=== PATIENT | female | born 1930 | race Two or more races ===

== ENCOUNTER 2016-05-05 10:28 | Inpatient (IN) | payer MEDICARE, OTHER ==
[2016-05-05] MEDS ORDERED: ceFAZolin 2 GM in SODIUM CHLORIDE 0.9% 100 ML IVPB ONE (11:08)
[2016-05-05 11:52] VITALS: BMI 25.7
[2016-05-05 12:11] LABS: Basophils % (A) 0 %; CH 29.6; CHCM 33.4; Eosinophils % (A) 1 %; HCT 35.2 % (34.0-46.0); HDW 2.56; HGB 11.7 gm/dL (11.4-16.0); Luc % (Auto) 3; Lymphocytes # (A) 0.9 k/uL (1.0-4.8); Lymphocytes % (A) 23 %; MCH 29.5 pg (25.0-35.0); MCHC 33.2 g/dL (31.0-37.0); MCV 88.8 fL (80.0-100.0); Mean Platelet Volume 6.4; Monocytes # (A) 0.2 k/uL (0-1.0); Monocytes % (A) 6 %; Neutrophils # (A) 2.6 k/uL (1.3-7.7); Neutrophils % (A) 67 %; RBC 3.96 m/uL (3.80-5.40); RDW 12.4 % (11.5-15.5); WBC 3.9 k/uL (3.8-10.6); WBC (Perox) 4.38
[2016-05-05 12:19] LABS: Anion Gap 10 mmol/L; Blood Urea Nitrogen 21 mg/dL (7-17); Calcium 9.2 mg/dL (8.4-10.2); Carbon Dioxide 25 mmol/L (22-30); Chloride 103 mmol/L (98-107); Glucose 92 mg/dL (74-99); Non-African American GFR(MDRD) >60 (>60 ml/min/1.73 sqM); Potassium 4.2 mmol/L (3.5-5.1); Sodium 138 mmol/L (137-145)
[2016-05-05 12:25] LABS: INR 1.1 (<1.1); Partial Thromboplastin Time 24.5 sec (22.0-30.0); Prothrombin Time 10.9 sec (9.0-12.0)
[2016-05-05] MEDS ORDERED: ACETAMINOPHEN TAB 500 MG TAB PO PRN (13:34)
[2016-05-05] MEDS: LISINOPRIL 5 MG TAB PO SCH ×2 (15:14→21:12)
--- NOTE | 2016-05-05 15:36 | P.CONS ---
History of Present Illness - Reason for Consult Consult date: 05/05/16 Medical management Requesting physician: Srinath Joe - Chief Complaint Left hip fracture - History of Present Illness This is a 85-year-old female with a past medical history of hypertension and hyperlipidemia. We have been consulted for medical clearance to proceed with surgery. Patient has been having left hip pain and difficulty walking since Monday. Went to see the orthopedic doctor and apparently an x-ray of the hip was done showing a left femoral head fracture. Patient was admitted to the hospital for surgical intervention tomorrow. Patient has seen Dr. Christina in the past for her PCP. It's been about 6 months since she last seen Dr. Christina. Patient denies any chest pain, shortness of breath, nausea or vomiting. Denies any bowel movement changes or urinary symptoms. Denies any fevers chills or sweats. Denies any cough or congestion or sore throat. Patient denies any previous [place], congestive heart failure, CVA, diabetes or renal insufficiency. Review of Systems Please refer to HPI otherwise unremarkable Past Medical History Past Medical History: Eye Disorder, Hypertension, Osteoarthritis (OA) Additional Past Medical History / Comment(s): cataracts History of Any Multi-Drug Resistant Organisms: None Reported Past Surgical History: No Surgical Hx Reported Past Anesthesia/Blood Transfusion Reactions: No Reported Reaction Past Psychological History: No Psychological Hx Reported Smoking Status: Never smoker Past Alcohol Use History: None Reported Past Drug Use History: None Reported - Past Family History Father Family Medical History: No Reported History Mother Family Medical History: No Reported History Medications and Allergies Home Medications Medication Instructions Recorded Confirmed Type Aspirin [Adult Low Dose Aspirin EC] 81 mg PO DAILY 05/05/16 05/05/16 History Enalapril [Vasotec] 5 mg PO BID 05/05/16 05/05/16 History Multivitamin [Multivitamins Adult 1 tab PO DAILY@1200 05/05/16 05/05/16 History Gummies] Allergies Allergy/AdvReac Type Severity Reaction Status Date / Time No Known Allergies Allergy Verified 05/05/16 14:07 Physical Exam Vitals: Vital Signs Temp Pulse Resp BP Pulse Ox 05/05/16 11:40 97 F L 74 17 188/87 98 Intake and Output 05/04/16 05/05/16 05/05/16 22:59 06:59 14:59 Other: # Voids 1 Weight 68.039 kg Patient Weight 05/06/16 06:59 Weight 68.039 kg Head normocephalic Neck supple Lungs clear to auscultation bilaterally no wheezing or crackles Heart regular rate and rhythm S1-S2, no rub or gallop Abdomen is soft nontender nondistended positive bowel sounds no hepatosplenomegaly Extremities no edema Neuro alert and orientated to 3 Results CBC & Chem 7: 05/05/16 11:55 05/05/16 11:55 Labs: Abnormal Lab Results - Last 24 Hours (Table) 05/05/16 05/05/16 Range/Units 11:55 11:55 Lymphocytes # 0.9 L (1.0-4.8) k/uL BUN 21 H (7-17) mg/dL Assessment and Plan Plan: 1. Left femoral head fracture: Admitted to orthopedic service. Anticipating surgical intervention tomorrow. Check urinalysis, EKG and chest x-ray for preop clearance. Patient is likely intermediate risk for surgery due to her age and hypertension. 2. Essential hypertension: with elevated blood pressure 188/87. We'll have blood pressure repeated. We'll resume patient's home medication enalapril 5 mg twice a day 3. Hyperlipidemia GI prophylaxis Pepcid and will leave DVT prophylaxis anticoagulation up to orthopedics Thank you for this consultation. We will continue to follow along with you. Time with Patient: Greater than 30 (Greater than 50% of the total time spent in counseling and coordination of care.I performed an examination of the patient and discussed their management with the physician Penal Officer. I have reviewed the Physician Penal Officer's notes and agree with the documented findings and plan of care)
[2016-05-05 17:09] LABS: Appearance,Urine Clear (Clear); Bilirubin,Urine Negative (Negative); Glucose,Urine (UA) Negative (Negative); Ketones,Urine Negative (Negative); Leukocyte Esterase,Urine Moderate (Negative); Mucus,Urine Rare /hpf; Nitrite,Urine Negative (Negative); PH, Urine 6.5 (5.0-8.0); Particle Count 1263; Protein,Urine Negative (Negative); RBC,Urine 1 /hpf (0-5); Specific Gravity,Urine 1.009 (1.001-1.035); Squamous Epithelial Cell,Urine <1 /hpf (0-4); UA Billing (MACRO vs. MICRO) MICRO; Urobilinogen,Urine <2.0 mg/dL (<2.0); WBC,Urine 1 /hpf (0-5)
[2016-05-05] MEDS ORDERED: HYDROmorphone 1 MG/ML 1 ML SYRINGE IVP PRN ×2 (17:12)
--- NOTE | 2016-05-05 17:20 | XR ---
EXAMINATION TYPE: XR chest 1V portable DATE OF EXAM: 05/05/2016 5:14 PM COMPARISON: NONE HISTORY: Preop clearance TECHNIQUE: Single frontal view of the chest is obtained. FINDINGS: There is no heart failure nor confluent pneumonic infiltrate. There are no hilar masses. T horacic aorta is atheromatous. There is no pleural effusion. Bony thorax appears intact. IMPRESSION: No active cardiopulmonary disease.
--- NOTE | 2016-05-05 17:29 | P.HPOR ---
History of Present Illness H&P Date: 05/05/16 Chief Complaint: Left hip fracture The patient is a pleasant 85-year-old female who presented to our office today with complaints of left hip pain. The patient states that the pain started approximately 1 week ago on Monday. She denies any specific injury such as a fall. She states that the pain started where she was unable to fully bear- weight and started to use a walker. The patient was seen and evaluated in the emergency department at [facility] where x-rays were taken and the patient was released back home with follow-up with an orthopedic physician. She currently lives with her daughter. She states she only uses a walker when walking long distances. Today, she denies fever, chills, rigors, abdominal pain, nausea, vomiting, shortness breath, and chest pain. She states she has a history of hypertension and hyperlipidemia. She denies history of stroke, heart attack, and diabetes. The patient was evaluated at the bedside with her daughter present. Review of Systems Constitutional: Denies chills, Denies fatigue, Denies fever Eyes: right tunnel vision/blind spots Cardiovascular: Denies chest pain, Denies shortness of breath Musculoskeletal: left: hip pain Neurological: Denies headaches, Denies syncope Past Medical History Past Medical History: Eye Disorder, Hypertension, Osteoarthritis (OA) Additional Past Medical History / Comment(s): cataracts History of Any Multi-Drug Resistant Organisms: None Reported Past Surgical History: No Surgical Hx Reported Past Anesthesia/Blood Transfusion Reactions: No Reported Reaction Past Psychological History: No Psychological Hx Reported Smoking Status: Never smoker Past Alcohol Use History: None Reported Past Drug Use History: None Reported - Past Family History Father Family Medical History: No Reported History Mother Family Medical History: No Reported History Medications and Allergies Home Medications Medication Instructions Recorded Confirmed Type Aspirin [Adult Low Dose Aspirin EC] 81 mg PO DAILY 05/05/16 05/05/16 History Enalapril [Vasotec] 5 mg PO BID 05/05/16 05/05/16 History Multivitamin [Multivitamins Adult 1 tab PO DAILY@1200 05/05/16 05/05/16 History Gummies] Allergies Allergy/AdvReac Type Severity Reaction Status Date / Time No Known Allergies Allergy Verified 05/05/16 14:07 Physical Examination The patient is in no acute distress. She is alert and oriented 3. The patient 's head is normocephalic atraumatic. No pain upon palpation of the cervical spine. No obvious deformities to the bilateral upper extremities or pain upon range of motion. Exam of the right lower extremity reveals no obvious deformities or pain upon range of motion. Focused exam of the left lower extremity reveals no external rotation or shortening. She denies pain to the distal femur and knee. She has good foot and ankle motion. Bilateral calves are soft and nontender. She is pain upon palpation to the lateral hip. No pain upon logrolling of the left leg. Neurological and circulatory status is intact. Results - Labs Labs: Abnormal Lab Results - Last 24 Hours (Table) 05/05/16 05/05/16 05/05/16 Range/Units 11:55 11:55 16:49 Lymphocytes # 0.9 L (1.0-4.8) k/uL BUN 21 H (7-17) mg/dL Urine Blood Small H (Negative) Ur Leukocyte Esterase Moderate H (Negative) Urine Mucus Rare H (None) /hpf H & H 05/05/16 Range/Units 11:55 Hgb 11.7 (11.4-16.0) gm/dL Hct 35.2 (34.0-46.0) % Coagulation 05/05/16 Range/Units 11:55 INR 1.1 (<1.1) Result Diagrams: 05/05/16 11:55 05/05/16 11:55 - Diagnostic results Hip x-ray: other (Outside x-rays from our office dated 05/05/2016 reveals a displaced femoral neck fracture to the left hip. Mild degenerative changes to the left hip is present.) Assessment and Plan (1) Closed left hip fracture Status: Acute (2) Hip pain, left Status: Acute Plan: The clinical and x-ray findings were discussed with the patient and the patient' s daughter at the bedside. The patient will undergo a left hip hemiarthroplasty tomorrow by Dr. Joe. Surgical risks were discussed at length with the patient. Possible risks and complications including but not limited to risk of bleeding, infection, dislocation, DVT, stroke, heart attack, and were discussed. She will be nothing by mouth at midnight. Continue pain control. The patient may get up to bedside commode with non-weightbearing to the left lower extremity or a Hook catheter may be inserted. The patient may need skilled rehab upon discharge or may discharge home with daughter depending on patient's course. We will continue to follow patient closely and make further recommendations as needed.
[2016-05-05] MEDS: SODIUM CHLORIDE 0.9% 1,000 ML IV SCH (17:33)
[2016-05-05] MEDS: MECLIZINE 25 MG TAB PO SCH (23:14)
[2016-05-06] MEDS: HYDROcodone/APAP 5-325MG 1 EACH TAB PO PRN ×3 (03:57→21:48)
[2016-05-06] MEDS ORDERED: ceFAZolin 2 GM in SODIUM CHLORIDE 0.9% 100 ML IVPB ONE (06:00)
[2016-05-06] MEDS ORDERED: MIDAZOLAM 2 MG/2 ML VIAL IV PRN (06:50)
[2016-05-06] MEDS ORDERED: ONDANSETRON 4 MG/2 ML VIAL IVP ONE (06:50)
[2016-05-06 07:43] LABS: Basophils % (A) 0 %; CH 29.7; CHCM 33.7; Eosinophils # (A) 0.1 k/uL (0-0.7); Eosinophils % (A) 2 %; HCT 33.8 % (34.0-46.0); HDW 2.58; Luc # (Auto) 0.12; Luc % (Auto) 3; Lymphocytes # (A) 0.9 k/uL (1.0-4.8); Lymphocytes % (A) 24 %; MCH 28.7 pg (25.0-35.0); MCHC 32.5 g/dL (31.0-37.0); MCV 88.3 fL (80.0-100.0); Mean Platelet Volume 6.4; Monocytes # (A) 0.3 k/uL (0-1.0); Monocytes % (A) 8 %; Neutrophils # (A) 2.3 k/uL (1.3-7.7); Neutrophils % (A) 62 %; RBC 3.83 m/uL (3.80-5.40); RDW 12.5 % (11.5-15.5); WBC 3.7 k/uL (3.8-10.6); WBC (Perox) 4.04
[2016-05-06] MEDS: LISINOPRIL 5 MG TAB PO SCH ×2 (08:02→21:48)
[2016-05-06 08:16] LABS: ALT 53 U/L (9-52); AST 40 U/L (14-36); Alkaline Phosphatase 68 U/L (38-126); Anion Gap 11 mmol/L; Blood Urea Nitrogen 19 mg/dL (7-17); Calcium 8.8 mg/dL (8.4-10.2); Carbon Dioxide 24 mmol/L (22-30); Chloride 105 mmol/L (98-107); Glucose 82 mg/dL (74-99); Non-African American GFR(MDRD) 60 (>60 ml/min/1.73 sqM); Sodium 140 mmol/L (137-145); Total Bilirubin 0.7 mg/dL (0.2-1.3); Total Protein 5.9 g/dL (6.3-8.2)
[2016-05-06] MEDS ORDERED: IV FLUID CONTINUATION 1,000 ML IV ONE (09:15)
[2016-05-06] MEDS ORDERED: PHENYLEPHRINE-0.9% NACL SYG 1 MG/10 ML SYRINGE ONE (10:16)
[2016-05-06] MEDS ORDERED: PROPOFOL 10 MG/ML 20 ML VIAL IV ONE (10:16)
[2016-05-06] MEDS ORDERED: fentaNYL (PF) 50 MCG/ML 2 ML AMP ONE (10:16)
[2016-05-06] MEDS ORDERED: MIDAZOLAM 2 MG/2 ML VIAL ONE (10:16)
[2016-05-06] MEDS ORDERED: ceFAZolin 3,000 MG in SODIUM CHLORIDE 0.9% IRRIGATIO 3,000 ML IRRIGATION ONE (10:57)
[2016-05-06] MEDS ORDERED: LACTATED RINGERS 1,000 ML IV ONE (11:15)
[2016-05-06] MEDS ORDERED: NALOXONE 0.4 MG/ML 1 ML VIAL IV PRN (12:13)
[2016-05-06] MEDS ORDERED: ONDANSETRON 4 MG/2 ML VIAL IVP PRN (12:13)
[2016-05-06] MEDS ORDERED: hydrOXYzine PAMOATE 25 MG CAP PO PRN (12:13)
[2016-05-06] MEDS ORDERED: HYDROmorphone 1 MG/ML 1 ML SYRINGE IVP PRN ×2 (12:13)
[2016-05-06] MEDS ORDERED: MAGNESIUM HYDROXIDE 2,400 MG/10 ML CUP PO PRN (12:13)
[2016-05-06] MEDS ORDERED: TEMAZEPAM 15 MG CAP PO PRN (12:13)
[2016-05-06] MEDS: LACTATED RINGERS 1,000 ML IV SCH ×2 (12:43→14:21)
[2016-05-06] MEDS: SODIUM CHLORIDE 0.9% 1,000 ML IV SCH (12:43)
[2016-05-06] MEDS: MECLIZINE 25 MG TAB PO SCH ×2 (12:43→21:48)
--- NOTE | 2016-05-06 12:49 | XR ---
EXAMINATION TYPE: XR Hip Limited LT DATE OF EXAM ORDERED: 05/06/2016 12:26 PM HISTORY: Left hip arthroplasty. COMPARISON: None. FINDINGS: A left hip hemiarthroplasty has been performed. Prosthetic elements appear in good positio n. IMPRESSION: STATUS POST LEFT HIP HEMIARTHROPLASTY..
--- NOTE | 2016-05-06 14:47 | P.PN ---
Subjective Patient is postop day #0 status post left hip femoral head replacement. Pain controlled. Denies any chest pain or shortness breath. Denies any nausea vomiting. Denies any bowel movement changes. Has Hook catheter in place. Objective - Vital Signs Vital signs: Vital Signs Temp 97.4 F L 05/06/16 13:15 Pulse 65 05/06/16 13:15 Resp 16 05/06/16 13:15 BP 143/75 05/06/16 13:15 Pulse Ox 100 05/06/16 13:15 Intake & Output 05/05/16 05/06/16 05/06/16 18:59 06:59 18:59 Intake Total 450 1901 Output Total 650 450 Balance -200 1451 Weight 68.039 kg Intake: IV 450 1901 Sodium Chloride 0.9% 1, 450 000 ml @ 50 mls/hr IV . Q20H [facility] Rx#:[id number] Output: Urine 650 400 Uretheral (Hook) 650 Estimated Blood Loss 50 Other: Voiding Method Bedside Commode Indwelling Catheter Indwelling Catheter # Voids 1 - Exam Head normocephalic Neck supple Lungs clear to auscultation bilaterally no wheezing or crackles Heart regular rate and rhythm S1-S2, no rub or gallop Abdomen is soft nontender nondistended positive bowel sounds no hepatosplenomegaly Extremities no edema Neuro alert and orientated to 3 - Labs CBC & Chem 7: 05/06/16 07:21 05/06/16 07:21 Labs: Abnormal Lab Results - Last 24 Hours (Table) 05/05/16 05/06/16 05/06/16 Range/Units 16:49 07:21 07:21 WBC 3.7 L (3.8-10.6) k/uL Hgb 11.0 L (11.4-16.0) gm/dL Hct 33.8 L (34.0-46.0) % Lymphocytes # 0.9 L (1.0-4.8) k/uL BUN 19 H (7-17) mg/dL AST 40 H (14-36) U/L ALT 53 H (9-52) U/L Total Protein 5.9 L (6.3-8.2) g/dL Albumin 3.2 L (3.5-5.0) g/dL Urine Blood Small H (Negative) Ur Leukocyte Esterase Moderate H (Negative) Urine Mucus Rare H (None) /hpf Assessment and Plan Plan: 1. Left femoral head fracture: Status post left hip femoral head replacement. Postop day #0. DVT prophylaxis with Coumadin per orthopedic protocol. Continue with pain medication per orthopedic protocol 2. Essential hypertension: Patient's blood pressures have shown improvement after resuming her lisinopril 3. Hyperlipidemia: patient's daughters to bring in home med list. Patient can' t remember which cholesterol medication she is on. GI prophylaxis Pepcid and will leave DVT Coumadin
[2016-05-06] MEDS: ceFAZolin 2 GM in SODIUM CHLORIDE 0.9% 100 ML IVPB SCH (16:18)
[2016-05-06] MEDS ORDERED: WARFARIN 2.5 MG TAB PO ONE (18:00)
[2016-05-06] MEDS: SENNOSIDES-DOCUSATE SODIUM 1 EACH TAB PO SCH (21:48)
[2016-05-07] MEDS: LACTATED RINGERS 1,000 ML IV SCH ×4 (00:05→20:48)
[2016-05-07] MEDS: ceFAZolin 2 GM in SODIUM CHLORIDE 0.9% 100 ML IVPB SCH (00:31)
[2016-05-07] MEDS: HYDROcodone/APAP 5-325MG 1 EACH TAB PO PRN ×2 (06:11→18:32)
[2016-05-07] MEDS: SODIUM CHLORIDE 0.9% 1,000 ML IV SCH (06:33)
[2016-05-07 07:20] LABS: Basophils % (A) 0 %; CH 29.9; CHCM 34.6; Eosinophils % (A) 0 %; HCT 28.3 % (34.0-46.0); HDW 2.69; Luc # (Auto) 0.11; Luc % (Auto) 2; Lymphocytes # (A) 0.6 k/uL (1.0-4.8); Lymphocytes % (A) 12 %; MCH 28.5 pg (25.0-35.0); MCHC 32.7 g/dL (31.0-37.0); Mean Platelet Volume 7.2; Monocytes # (A) 0.4 k/uL (0-1.0); Monocytes % (A) 8 %; Neutrophils # (A) 3.5 k/uL (1.3-7.7); Neutrophils % (A) 77 %; RBC 3.26 m/uL (3.80-5.40); RDW 12.4 % (11.5-15.5); WBC 4.6 k/uL (3.8-10.6); WBC (Perox) 4.47
[2016-05-07 07:26] LABS: INR 1.3 (<1.1); Prothrombin Time 13.2 sec (9.0-12.0)
[2016-05-07 07:38] LABS: HGB 9.3 gm/dL (11.4-16.0)
[2016-05-07 07:47] LABS: ALT 40 U/L (9-52); AST 41 U/L (14-36); Alkaline Phosphatase 60 U/L (38-126); Anion Gap 9 mmol/L; Blood Urea Nitrogen 23 mg/dL (7-17); Calcium 8.6 mg/dL (8.4-10.2); Carbon Dioxide 23 mmol/L (22-30); Chloride 103 mmol/L (98-107); Glucose 110 mg/dL (74-99); Non-African American GFR(MDRD) >60 (>60 ml/min/1.73 sqM); Potassium 3.8 mmol/L (3.5-5.1); Sodium 135 mmol/L (137-145); Total Bilirubin 0.6 mg/dL (0.2-1.3); Total Protein 5.6 g/dL (6.3-8.2)
[2016-05-07] MEDS: MECLIZINE 25 MG TAB PO SCH ×2 (07:54→19:20)
[2016-05-07] MEDS: LISINOPRIL 5 MG TAB PO SCH ×2 (07:54→19:20)
--- NOTE | 2016-05-07 09:17 | P.PN ---
Subjective Principal diagnosis: Status post left hip hemiarthroplasty Patient is pleasant 85-year-old female seen at bedside this morning. She is postop day 1 from left hip hemiarthroplasty performed by Dr. Joe. She has no new complaints. Her pain is controlled. She denies calf pain, fever, chills, chest pain, shortness breath, numbness, tingling, calf pain or other. Objective - Vital Signs Vital signs: Vital Signs Temp 99.1 F 05/07/16 08:00 Pulse 88 05/07/16 08:00 Resp 15 05/07/16 08:00 BP 126/75 05/07/16 08:00 Pulse Ox 96 05/07/16 08:00 Intake & Output 05/06/16 05/07/16 05/07/16 18:59 06:59 18:59 Intake Total 1901 200 180 Output Total 450 520 Balance 1451 -320 180 Intake: IV 1901 200 Sodium Chloride 0.9% 1, 200 000 ml @ 50 mls/hr IV . Q20H [facility] Rx#:[id number] Oral 180 Output: Urine 400 520 Uretheral (Hook) 320 Estimated Blood Loss 50 Other: Voiding Method Indwelling Catheter Indwelling Catheter Indwelling Catheter - Exam Inspection of left hip surgical wound is benign. There is no active bleeding, dehiscence or drainage. Sensation to light touch is intact with the left lower extremity. She has active motor at the knee, foot, ankle and toes. Calf is soft and nontender. 2+ dorsalis pedis pulses present and less than 2 second cap refill is present. - Constitutional General appearance: Present: no acute distress - Psychiatric Psychiatric: Present: A&O x's 3, appropriate affect, intact judgment & insight - Labs CBC & Chem 7: 05/07/16 06:57 05/07/16 06:57 Labs: Abnormal Lab Results - Last 24 Hours (Table) 05/07/16 05/07/16 05/07/16 Range/Units 06:57 06:57 06:57 RBC 3.26 L (3.80-5.40) m/uL Hgb 9.3 L D (11.4-16.0) gm/dL Hct 28.3 L (34.0-46.0) % Lymphocytes # 0.6 L (1.0-4.8) k/uL PT 13.2 H (9.0-12.0) sec Sodium 135 L (137-145) mmol/L BUN 23 H (7-17) mg/dL Glucose 110 H (74-99) mg/dL AST 41 H (14-36) U/L Total Protein 5.6 L (6.3-8.2) g/dL Albumin 3.0 L (3.5-5.0) g/dL Microbiology - Last 24 Hours (Table) 05/06/16 08:35 Urine Culture - Preliminary Urine,Catheterized Assessment and Plan (1) Closed left hip fracture Narrative/Plan: She'll continue with routine postop orthopedic protocol including pain management, wound care, physical therapy, DVT prophylaxis and medical management. She'll likely transfer to an extended care facility for rehab on 05/09/2016 Status: Acute Time with Patient: Less than 30
--- NOTE | 2016-05-07 17:08 | P.PN ---
Subjective Patient is an 85-year-old female admitted to the hospital due to left femoral head fracture, she underwent left femoral head replacement she is postoperative day #1 Hook catheter was removed today Patient is feeling well she has mild pain she denies any other complaints at this time Objective - Vital Signs Vital signs: Vital Signs Temp 98.4 F 05/07/16 16:14 Pulse 100 05/07/16 13:39 Resp 16 05/07/16 13:39 BP 102/49 05/07/16 13:39 Pulse Ox 96 05/07/16 13:39 Intake & Output 05/06/16 05/07/16 05/07/16 18:59 06:59 18:59 Intake Total 8297 490 8084 Output Total 450 520 Balance 1451 -320 1100 Intake: IV 1901 200 400 Sodium Chloride 0.9% 1, 200 400 000 ml @ 50 mls/hr IV . Q20H [facility] Rx#:[id number] Intake, IV Titration 100 Amount ceFAZolin 2 gm In Sodium 100 Chloride 0.9% 100 ml @ 100 mls/hr IVPB Q8HR [facility] Rx#:[id number] Oral 600 Output: Urine 400 520 Uretheral (Hook) 320 Estimated Blood Loss 50 Other: Voiding Method Indwelling Catheter Indwelling Catheter Indwelling Catheter - Exam HEENT head normocephalic and atraumatic Neck is supple no JVD no goiter no lymphadenopathy Chest is clear to auscultation no wheezing Cardiac exam reveals regular heart sounds no murmurs Abdomen is soft nontender no organomegaly Extremity exam reveals no edema no cyanosis or clubbing - Labs CBC & Chem 7: 05/07/16 06:57 05/07/16 06:57 Labs: Abnormal Lab Results - Last 24 Hours (Table) 05/07/16 05/07/16 05/07/16 Range/Units 06:57 06:57 06:57 RBC 3.26 L (3.80-5.40) m/uL Hgb 9.3 L D (11.4-16.0) gm/dL Hct 28.3 L (34.0-46.0) % Lymphocytes # 0.6 L (1.0-4.8) k/uL PT 13.2 H (9.0-12.0) sec Sodium 135 L (137-145) mmol/L BUN 23 H (7-17) mg/dL Glucose 110 H (74-99) mg/dL AST 41 H (14-36) U/L Total Protein 5.6 L (6.3-8.2) g/dL Albumin 3.0 L (3.5-5.0) g/dL Microbiology - Last 24 Hours (Table) 05/06/16 08:35 Urine Culture - Final Urine,Catheterized Assessment and Plan Plan: 1. Left femoral head fracture: Status post left hip femoral head replacement. Postop day #0. DVT prophylaxis with Coumadin per orthopedic protocol. Continue with pain medication per orthopedic protocol 2. Essential hypertension: Patient's blood pressures have shown improvement after resuming her lisinopril 3. Hyperlipidemia: patient's daughters to bring in home med list. Patient can' t remember which cholesterol medication she is on. 4. Anemia hemoglobin down to 8 today Will monitor 5. For DVT prophylaxis patient is on Coumadin per orthopedic protocol Continue was current management will recheck labs in a.m.
[2016-05-07] MEDS ORDERED: WARFARIN 5 MG TAB PO ONE (18:15)
[2016-05-07] MEDS: SENNOSIDES-DOCUSATE SODIUM 1 EACH TAB PO SCH (19:20)
[2016-05-08] MEDS: HYDROcodone/APAP 5-325MG 1 EACH TAB PO PRN ×3 (03:53→20:11)
[2016-05-08] MEDS: SODIUM CHLORIDE 0.9% 1,000 ML IV SCH ×2 (03:55→22:09)
[2016-05-08] MEDS: LACTATED RINGERS 1,000 ML IV SCH ×3 (05:31→20:05)
[2016-05-08 07:30] LABS: Basophils % (A) 0 %; CH 29.8; CHCM 33.8; Eosinophils # (A) 0.1 k/uL (0-0.7); Eosinophils % (A) 1 %; HCT 27.2 % (34.0-46.0); HDW 2.61; HGB 9.1 gm/dL (11.4-16.0); Luc # (Auto) 0.12; Luc % (Auto) 2; Lymphocytes % (A) 20 %; MCH 29.5 pg (25.0-35.0); MCHC 33.3 g/dL (31.0-37.0); MCV 88.6 fL (80.0-100.0); Mean Platelet Volume 7.3; Monocytes # (A) 0.3 k/uL (0-1.0); Monocytes % (A) 6 %; Neutrophils # (A) 3.8 k/uL (1.3-7.7); Neutrophils % (A) 71 %; RBC 3.07 m/uL (3.80-5.40); RDW 12.5 % (11.5-15.5); WBC 5.3 k/uL (3.8-10.6)
[2016-05-08 07:45] LABS: INR 1.5 (<1.1); Prothrombin Time 14.3 sec (9.0-12.0)
[2016-05-08 08:01] LABS: ALT 31 U/L (9-52); AST 31 U/L (14-36); Alkaline Phosphatase 48 U/L (38-126); Anion Gap 9 mmol/L; Blood Urea Nitrogen 30 mg/dL (7-17); Calcium 8.4 mg/dL (8.4-10.2); Carbon Dioxide 22 mmol/L (22-30); Chloride 104 mmol/L (98-107); Glucose 104 mg/dL (74-99); Non-African American GFR(MDRD) 59 (>60 ml/min/1.73 sqM); Potassium 4.1 mmol/L (3.5-5.1); Sodium 135 mmol/L (137-145); Total Bilirubin 0.6 mg/dL (0.2-1.3)
[2016-05-08] MEDS: MECLIZINE 25 MG TAB PO SCH ×2 (08:01→22:07)
[2016-05-08] MEDS: LISINOPRIL 5 MG TAB PO SCH ×2 (08:01→22:07)
--- NOTE | 2016-05-08 09:00 | P.PN ---
Subjective 85-year-old female being seen sitting up in a chair physical therapy at the bedside daughter at bedside updated on plan of care. Patient is postop left femoral head replacement day 2 currently is denying chest pain dizziness or lightheadedness. The discharge plan is in progress the daughter indicates the patient is interested in [facility] subacute rehab when appropriate Objective - Vital Signs Vital signs: Vital Signs Temp 97.7 F 05/08/16 03:00 Pulse 100 05/08/16 03:00 Resp 18 05/08/16 03:00 BP 151/78 05/08/16 03:00 Pulse Ox 96 05/08/16 03:00 Intake & Output 05/07/16 05/08/16 05/08/16 17:59 06:59 18:59 Intake Total 180 Output Total Balance 180 Intake: IV Sodium Chloride 0.9% 1, 000 ml @ 50 mls/hr IV . Q20H [facility] Rx#:[id number] Intake, IV Titration Amount ceFAZolin 2 gm In Sodium Chloride 0.9% 100 ml @ 100 mls/hr IVPB Q8HR [facility] Rx#:[id number] Oral 180 Output: Urine Uretheral (Hook) Other: Voiding Method - Exam Physical exam 85-year-old female sitting up in a chair pleasant denying chest pain dizziness lightheadedness or shortness of breath oriented 3 Lungs essentially clear on room air Heart S1-S2 audible and regular Abdomen soft nontender urinating no difficulty no stool Extremities dressing to the left hip dry below-knee MIRACLE hose on no calf tenderness no edema - Labs CBC & Chem 7: 05/08/16 07:01 05/08/16 07:01 Labs: Abnormal Lab Results - Last 24 Hours (Table) 05/08/16 05/08/16 05/08/16 Range/Units 07:01 07:01 07:01 RBC 3.07 L (3.80-5.40) m/uL Hgb 9.1 L (11.4-16.0) gm/dL Hct 27.2 L (34.0-46.0) % PT 14.3 H (9.0-12.0) sec Sodium 135 L (137-145) mmol/L BUN 30 H (7-17) mg/dL Glucose 104 H (74-99) mg/dL Total Protein 5.0 L (6.3-8.2) g/dL Albumin 2.6 L (3.5-5.0) g/dL Microbiology - Last 24 Hours (Table) 05/06/16 08:35 Urine Culture - Final Urine,Catheterized Assessment and Plan Plan: Impression Left femoral head fracture status post left hip femoral head replacement postop day 1 Essential hypertension Hyperlipidemia anemia hemoglobin stable 9.1 History of osteoarthritis Plan Continue postop orthopedic care per orthopedics Activity per orthopedics recommendations Pain control Monitor blood pressure and heart rate address as indicated PT OT eval Discharge plan and progress subacute rehab when appropriate The above dictated assessment and findings were discussed with dr cline . Impression and the plan of care have been dictated as directed. Gabriella Laureano nurse practitioner acting as a scribe for dr cline
--- NOTE | 2016-05-08 09:44 | P.PN ---
Subjective Principal diagnosis: Status post left hip hemiarthroplasty Patient is pleasant 85-year-old female seen at bedside this morning. She is postop day #2 from left hip hemiarthroplasty performed by Dr. Joe. She has no new complaints. Her pain is controlled. She denies calf pain, fever, chills, chest pain, shortness breath, numbness, tingling, calf pain or other. Objective - Vital Signs Vital signs: Vital Signs Temp 97.7 F 05/08/16 03:00 Pulse 100 05/08/16 03:00 Resp 18 05/08/16 03:00 BP 151/78 05/08/16 03:00 Pulse Ox 96 05/08/16 03:00 Intake & Output 05/07/16 05/08/16 05/08/16 17:59 06:59 18:59 Intake Total 180 Output Total Balance 180 Intake: IV Sodium Chloride 0.9% 1, 000 ml @ 50 mls/hr IV . Q20H [facility] Rx#:[id number] Intake, IV Titration Amount ceFAZolin 2 gm In Sodium Chloride 0.9% 100 ml @ 100 mls/hr IVPB Q8HR [facility] Rx#:[id number] Oral 180 Output: Urine Uretheral (Hook) Other: Voiding Method - Exam Inspection of left hip surgical wound is benign. There is no active bleeding, dehiscence or drainage. Sensation to light touch is intact with the left lower extremity. She has active motor at the knee, foot, ankle and toes. Calf is soft and nontender. 2+ dorsalis pedis pulses present and less than 2 second cap refill is present. - Constitutional General appearance: Present: no acute distress - Psychiatric Psychiatric: Present: A&O x's 3, appropriate affect, intact judgment & insight - Labs CBC & Chem 7: 05/08/16 07:01 05/08/16 07:01 Labs: Abnormal Lab Results - Last 24 Hours (Table) 05/08/16 05/08/16 05/08/16 Range/Units 07:01 07:01 07:01 RBC 3.07 L (3.80-5.40) m/uL Hgb 9.1 L (11.4-16.0) gm/dL Hct 27.2 L (34.0-46.0) % PT 14.3 H (9.0-12.0) sec Sodium 135 L (137-145) mmol/L BUN 30 H (7-17) mg/dL Glucose 104 H (74-99) mg/dL Total Protein 5.0 L (6.3-8.2) g/dL Albumin 2.6 L (3.5-5.0) g/dL Microbiology - Last 24 Hours (Table) 05/06/16 08:35 Urine Culture - Final Urine,Catheterized Assessment and Plan (1) Closed left hip fracture Narrative/Plan: She'll continue with routine postop orthopedic protocol including pain management, wound care, physical therapy, DVT prophylaxis and medical management. She'll likely transfer to an extended care facility for rehab on 05/09/2016 Status: Acute Time with Patient: Less than 30
[2016-05-08] MEDS ORDERED: WARFARIN 2.5 MG TAB PO ONE (18:00)
[2016-05-08] MEDS: SENNOSIDES-DOCUSATE SODIUM 1 EACH TAB PO SCH (22:07)
[2016-05-09 01:00] VITALS: BP 152/77; PULSE 98; RESP 16; TEMP 98.6
[2016-05-09] MEDS: LACTATED RINGERS 1,000 ML IV SCH ×2 (05:16)
[2016-05-09] MEDS: HYDROcodone/APAP 5-325MG 1 EACH TAB PO PRN ×2 (06:10→12:32)
[2016-05-09 07:22] LABS: Basophils % (A) 0 %; CH 29.8; CHCM 34.2; Eosinophils # (A) 0.1 k/uL (0-0.7); Eosinophils % (A) 3 %; HCT 26.4 % (34.0-46.0); HDW 2.69; HGB 8.8 gm/dL (11.4-16.0); Luc # (Auto) 0.09; Luc % (Auto) 2; Lymphocytes # (A) 0.6 k/uL (1.0-4.8); Lymphocytes % (A) 15 %; MCH 29.4 pg (25.0-35.0); MCHC 33.4 g/dL (31.0-37.0); MCV 87.8 fL (80.0-100.0); Mean Platelet Volume 7.6; Monocytes # (A) 0.3 k/uL (0-1.0); Monocytes % (A) 6 %; Neutrophils # (A) 3.1 k/uL (1.3-7.7); Neutrophils % (A) 74 %; RDW 12.5 % (11.5-15.5); WBC 4.2 k/uL (3.8-10.6); WBC (Perox) 4.49
[2016-05-09 07:36] LABS: INR 2.3 (<1.1); Prothrombin Time 22.4 sec (9.0-12.0)
[2016-05-09] MEDS: LISINOPRIL 5 MG TAB PO SCH (07:45)
[2016-05-09] MEDS: MECLIZINE 25 MG TAB PO SCH (07:47)
--- NOTE | 2016-05-09 08:47 | P.DS ---
Providers Date of admission: 05/05/16 11:01 Expected date of discharge: 05/09/16 Attending physician: Srinath Joe Consults: 05/05/16 11:08 Consult Physician Routine Consulting Provider: Bo Alcala Consult Reason/Comments: surgical clearance and medical management Do you want consulting provider notified?: Yes Primary care physician: Stated None - Discharge Diagnosis(es) (1) Closed left hip fracture Current Visit: Yes Status: Acute Priority: Medium (2) Hip pain, left Current Visit: Yes Status: Acute Hospital Course: This is a 85 year old female who presented to the hospital after a left hip fracture was found in our office via x-ray. The patient was cleared by medicine for surgery. The patient underwent a left hip hemiarthroplasty on 11/[address] Joe. The procedure was performed without complication or sequelae. The patient is doing well postoperatively. Labs and vital signs are stable on the day of discharge. On the day of discharge the patient's hip incision is healing well. There is minimal erythema. There is no drainage noted at this time. There is minimal soft tissue swelling to the hip and thigh. The patient has full foot and ankle motion without difficulty or pain. Neurovascular status to the left lower extremity is intact. The patient did have some urinary retention yesterday and a Hook catheter was reinserted. The patient is discharged to skilled rehab in good condition. See medication reconciliation for accurate list of discharge medications. Pertinent Studies: Laboratory Tests 05/09/16 05/09/16 07:02 07:05 WBC 4.2 RBC 3.00 L Hgb 8.8 L Hct 26.4 L PT 22.4 H INR 2.3 Patient Condition at Discharge: Stable Plan - Discharge Summary New Discharge Prescriptions: Aspirin 325 mg PO DAILY #30 tab HYDROcodone/APAP 5-325MG [[place] 5] 1 - 2 each PO Q4-6H PRN #60 tab PRN Reason: Pain Sennosides-Docusate Sodium [Senokot-S] 2 tab PO DAILY #30 tablet Warfarin [Coumadin] 2.5 mg PO DIRECTED #30 tab Discharge Medication List Aspirin [Adult Low Dose Aspirin EC] 81 mg PO DAILY 05/05/16 [History] Enalapril [Vasotec] 5 mg PO BID 05/05/16 [History] Multivitamin [Multivitamins Adult Gummies] 1 tab PO DAILY@1200 05/05/16 [History ] Aspirin 325 mg PO DAILY #30 tab 05/09/16 [Rx] HYDROcodone/APAP 5-325MG [[place] 5] 1 - 2 each PO Q4-6H PRN #60 tab 05/09/16 [Rx] Sennosides-Docusate Sodium [Senokot-S] 2 tab PO DAILY #30 tablet 05/09/16 [Rx] Warfarin [Coumadin] 2.5 mg PO DIRECTED #30 tab 05/09/16 [Rx] Follow up Appointment(s)/Referral(s): Srinath Joe DO [Doctor of Osteopathic Medicine] - 2 Weeks Activity/Diet/Wound Care/Special Instructions: Weightbearing as tolerated with a walker Coumadin 2.5 mg 1 by mouth every other day for 7 days then take Aspirin 325mg daily for 1 month Follow Hip precautions Use Abductor pillow as instructed May shower if no drainage from incision Keep incision clean and dry Call [facility] [phone] with questions or concerns Discharge Disposition: TRANSFER TO SNF/ECF
[2016-05-09] MEDS ORDERED: FERROUS SULFATE 325 MG TAB PO SCH (09:00)
--- NOTE | 2016-05-09 11:51 | P.PN ---
Subjective Patient is status post left hip femoral head replacement. Pain controlled. Denies any chest pain or shortness breath. Denies any nausea vomiting. Denies any bowel movement changes. Has Hook catheter in place. Patient had urinary retention over the weekend and had Hook catheter reinserted. Objective - Vital Signs Vital signs: Vital Signs Temp 98.6 F 05/09/16 00:00 Pulse 98 05/09/16 00:00 Resp 16 05/09/16 00:00 BP 152/77 05/09/16 00:00 Pulse Ox 96 05/09/16 00:00 Intake & Output 05/08/16 05/09/16 05/09/16 18:59 06:59 18:59 Intake Total 900 120 Output Total 450 Balance 900 -330 Intake: IV 300 Sodium Chloride 0.9% 1, 300 000 ml @ 50 mls/hr IV . Q20H COUNTS INCLUDE 234 BEDS AT THE [facility] Rx#:[id number] Oral 600 120 Output: Urine 450 Other: Voiding Method Toilet Indwelling Catheter - Exam Head normocephalic Neck supple Lungs clear to auscultation bilaterally no wheezing or crackles Heart regular rate and rhythm S1-S2, no rub or gallop Abdomen is soft nontender nondistended positive bowel sounds no hepatosplenomegaly Extremities no edema Neuro alert and orientated to 3 - Labs CBC & Chem 7: 05/09/16 07:05 05/08/16 07:01 Labs: Abnormal Lab Results - Last 24 Hours (Table) 05/09/16 05/09/16 Range/Units 07:02 07:05 RBC 3.00 L (3.80-5.40) m/uL Hgb 8.8 L (11.4-16.0) gm/dL Hct 26.4 L (34.0-46.0) % Lymphocytes # 0.6 L (1.0-4.8) k/uL PT 22.4 H (9.0-12.0) sec Assessment and Plan Plan: 1. Left femoral head fracture: Status post left hip femoral head replacement. DVT prophylaxis with Coumadin for 7 days and then a full aspirin daily per orthopedic protocol. Continue with pain medication per orthopedic protocol 2. Essential hypertension: Patient's blood pressures have shown improvement after resuming her lisinopril 3. Hyperlipidemia 4. Acute blood loss anemia secondary to surgery. Start patient on ferrous sulfate 325 mg twice a day. Hemoglobin at discharge is 8.8. Recommend checking CBC on . 5. Urinary retention. We'll keep Hook catheter in place for 5 days. Remove Hook catheter and check postvoid residual 2 days. We'll have patient follow- up with urology in the outpatient setting. Patient is medically stable for discharge. Dr. yun will follow at [facility] [place].
--- NOTE | 2016-05-09 21:40 | OP ---
DATE OF SERVICE: 05/06/2016 SURGEON: VINICIO PHELPS DO DIRECTOR MOBILE: TATE COLE NP PREOPERATIVE DIAGNOSIS: Subcapital fracture of the left hip. POSTOPERATIVE DIAGNOSIS: Subcapital fracture of the left hip. OPERATION: Left femoral head replacement arthroplasty utilizing Rhina components. ANESTHESIA: ESTIMATED BLOOD LOSS: SPECIMENS REMOVED: COMPLICATIONS: OPERATIVE FINDINGS: DESCRIPTION OF PROCEDURE: The patient was taken to the operative suite. Spinal anesthesia was performed by the department of the anesthesiology. Patient was placed in right lateral recumbent position, was secured and padded on the surgical table. Betadine prep was carried out over the left hip. Sterile drapes were applied in the usual manner. A longitudinal incision was developed over the proximal femur, greater trochanter. Sharp dissection was carried out throughout the subcutaneous tissue. The tensor fascia claudine was incised longitudinally and a Charnley self-retaining retractor was inserted. Gluteus medius was dissected along attachment of greater trochanter. The anterior capsule was then incised and the leg adducted. The femoral head was removed with a bone saw and femoral neck shaved with bone saw. A bone awl were utilized in preparation for femoral canal reaming. Graduated broaches were then utilized in preparation for a femoral component size 14 press-fit component. the cortical arc was shape with shelving planer.Alignment was well maintained. The trial neck and 48 head was inserted and reduced. Stability and alignment were well maintained. The area was irrigated with Pulsavac antibiotic solution. The femoral trial component was then removed. Final size 14 press-fit femoral stem was inserted in the canal and impacted into the cortical arc. A 48 placed on the trunnion was impacted and the hip was reduced. Stability and alignment were again well maintained. The leg was then slightly abducted and gluteus medius was approximated with a #3 Vicryl suture. Tensor fascia claudine was approximated with #3 suture in a horizontal mattress fashion. Number 2 Vicryl and Quill sutures were utilized in reinforcing the tensor fascia claudine. 2-0 Vicryl suture was utilized in closing the subcutaneous tissue. The skin was approximated with 3-0 Quill suture in subcuticular fashion. Skin was sealed with Dermabond. Sterile dressing was applied. Patient was secured in an adductor pillow splint. Patient was transferred to the recovery room in satisfactory postoperative condition. GROSS PATHOLOGY: There was evidence of displaced subcapital fracture of the left hip. Estimated blood loss 50 mL. MTDD
== END 2016-05-09 14:20 | DRG 470 ==
LOC: 3SUR 11:01
PROVIDERS: ADMIT Orthopaedic Surgery; ATTEND Orthopaedic Surgery
PROC: 0SRS0JZ Replacement of Left Hip Joint, Femoral Surface with Synthetic Substitute, Open Approach (ICD-10-PCS; principal; 2016-05-06 09:55)
PROC: 0T9B70Z Drainage of Bladder with Drainage Device, Via Natural or Artificial Opening (ICD-10-PCS; 2016-05-08)
DX: S72.012A Unspecified intracapsular fracture of left femur, initial encounter for closed fracture (principal); I10 Essential (primary) hypertension; D62 Acute posthemorrhagic anemia; E78.5 Hyperlipidemia, unspecified; R33.9 Retention of urine, unspecified; R26.2 Difficulty in walking, not elsewhere classified; H26.9 Unspecified cataract; M16.12 Unilateral primary osteoarthritis, left hip; Z79.82 Long term (current) use of aspirin; Z79.899 Other long term (current) drug therapy
CPT/HCPCS: 71010; 73501; 80048; 80053; 81001; 85025; 85610; 85730; 86850; 86900; 86901; 87086; 88305; 88311; 93005